=== PATIENT | male | born 1965 | race Caucasian/White ===

== ENCOUNTER 2017-08-11 05:40 | Emergency (ER) | payer MEDICARE, OTHER ==
[2017-08-11] MEDS ORDERED: ROCURONIUM 50 MG/5 ML VIAL. (07:29)
[2017-08-11] MEDS ORDERED: KETAMINE HCL 500 MG/10 ML VIAL. (07:29)
== END 2017-08-11 07:18 | disposition expired ==
LOC: ER 05:40
DX: I46.9 Cardiac arrest, cause unspecified (principal); Z93.0 Tracheostomy status; Z93.1 Gastrostomy status; Z86.718 Personal history of other venous thrombosis and embolism
CPT/HCPCS: 92950; 99285-25